=== PATIENT | male | born 1980 | race Caucasian/White ===

== ENCOUNTER → 2021-07-05 | Outpatient (CLI) | payer BC ==
--- NOTE | 2021-07-06 08:45 | XR ---
EXAM TYPE: LUMBAR SPINE X RAY SERIES COMPARISON: NONE HISTORY: Pain TECHNIQUE: 4 views are submitted. FINDINGS: Alignment is anatomic. The pedicles are intact. The transverse processes are intact. Findings suspi cious for bilateral spondylolysis L5. There is minimal anterolisthesis. Very mild hypertrophic change s along the anterior margins of the vertebral segments at multiple levels. Facet arthropathy is seen at levels L3-S1. IMPRESSION: 1. Multilevel facet arthropathy. Findings suspicious for bilateral spondylolysis L5 with minimal ante rolisthesis. Recommend follow-up MRI.
== END | disposition home or self-care (01) ==
LOC: RADXRYALE 16:26
PROVIDERS: ATTEND Nurse Practitioner Family
DX: M47.817 Spondylosis without myelopathy or radiculopathy, lumbosacral region (principal); M43.16 Spondylolisthesis, lumbar region
CPT/HCPCS: 72110

== ENCOUNTER 2024-10-18 18:21 | Observation (INO) | payer BC ==
--- NOTE | 2024-10-18 18:45 | ED ---
Arrhythmia/Palpitations HPI - General Chief Complaint: Arrhythmia/Palpitations Stated Complaint: fast heart rate Time Seen by Provider: 10/18/24 18:37 Source: patient, RN notes reviewed Mode of arrival: ambulatory Limitations: no limitations - History of Present Illness Initial Comments: This is a 44-year-old male with history of hypertension and GERD presenting for sudden onset palpitations occurring at 1430 today. 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 Patient endorses history of palpitations 10 years ago with no concerning findings at that time. States shortness of breath and dizziness have resolved but endorses ongoing palpitations. Patient is currently taking metoprolol for blood pressure control. Denies history of A-fib. Otherwise denies chest pain, cough, hemoptysis, fever, chills, abdominal pain, N/V/D. MD Complaint: "skipped beats", palpitations Onset/Timin -: hour(s) Time: 16:30 Context: occurred during rest Associated Symptoms: shortness of breath - Related Data Home Medications Medication Instructions Recorded Confirmed Omeprazole [PriLOSEC] 20 mg PO DAILY 05/28/14 10/18/24 Metoprolol Succinate [Metoprolol 25 mg PO HS 10/18/24 10/18/24 Succinate ER] Olmesartan/Hydrochlorothiazide 1 tab PO DAILY 10/18/24 10/18/24 [Olmesartan-Hctz 20-12.5 mg Tab] Allergies Allergy/AdvReac Type Severity Reaction Status Date / Time No Known Allergies Allergy Verified 10/18/24 18:43 Review of Systems ROS Statement: Those systems with pertinent positive or pertinent negative responses have been documented in the HPI. ROS Other: All systems not noted in ROS Statement are negative. Past Medical History Past Medical History: GERD/Reflux, Hypertension History of Any Multi-Drug Resistant Organisms: None Reported Past Surgical History: Appendectomy Past Anesthesia/Blood Transfusion Reactions: No Reported Reaction Past Psychological History: No Psychological Hx Reported Smoking Status: Never smoker Past Alcohol Use History: Occasional Past Drug Use History: None Reported General Exam Limitations: no limitations General appearance: alert, in no apparent distress Head exam: Present: atraumatic, normocephalic, normal inspection Eye exam: Present: normal appearance, PERRL, EOMI. Absent: scleral icterus, conjunctival injection, periorbital swelling ENT exam: Present: normal exam, mucous membranes moist Neck exam: Present: normal inspection. Absent: tenderness, meningismus, lymphadenopathy Respiratory exam: Present: normal lung sounds bilaterally. Absent: respiratory distress, wheezes, rales, rhonchi, stridor, accessory muscle use, decreased breath sounds, prolonged expiratory Cardiovascular Exam: Present: regular rate, irregular rhythm, normal heart sounds. Absent: systolic murmur, diastolic murmur, rubs, gallop, clicks GI/Abdominal exam: Present: soft, normal bowel sounds. Absent: distended, tenderness, guarding, rebound, rigid Extremities exam: Present: normal inspection, full ROM, normal capillary refill, other (Bilateral radial pulses +2, irregular). Absent: tenderness, pedal edema, joint swelling, calf tenderness Back exam: Present: normal inspection Neurological exam: Present: alert, oriented X3, CN II-XII intact Psychiatric exam: Present: normal affect, normal mood Skin exam: Present: warm, dry, intact, normal color. Absent: rash Course Vital Signs 10/18/24 10/18/24 10/18/24 18:23 20:31 21:30 Temperature 97.8 F Pulse Rate 102 H 78 85 Respiratory 20 19 16 Rate Blood Pressure 132/88 118/80 114/79 O2 Sat by Pulse 99 100 99 Oximetry Medical Decision Making - Medical Decision Making Was pt. sent in by a medical professional or institution ([facility] Johnson, [employer], urgent care, hospital, or senior care...) When possible be specific @ -No Did you speak to anyone other than the patient for history (EMS, parent, family, police, friend...)? What history was obtained from this source @ -No Did you review nursing and triage notes (agree or disagree)? Why? @ -I reviewed and agree with nursing and triage notes Were old charts reviewed (outside hosp., previous admission, EMS record, old EKG, old radiological studies, urgent care reports/EKG's, senior care records)? Report findings @ -No old charts were reviewed Differential Diagnosis (chest pain, altered mental status, abdominal pain women, abdominal pain men, vaginal bleeding, weakness, fever, dyspnea, syncope, headache, dizziness, GI bleed, back pain, seizure, CVA, palpatations, mental health, musculoskeletal)? @ -Differential Palpitations Ventricular arrhythmias, atrial arrhythmias, myocardial infarction, anemia, thyrotoxicosis, electrolyte imbalance, hypokalemia, pulmonary embolism, pulmonary disease, drugs, alcohol, anxiety, stress.... This is not meant to be an all-inclusive list. EKG interpreted by me (3pts min.). @ -Atrial fibrillation with LVH. No ST deviation or T wave inversion. Ventricular rate 97 bpm, QRS 84 ms, QTc 396 ms. X-rays interpreted by me (1pt min.). @ -CXR shows no acute cardiopulmonary process CT interpreted by me (1pt min.). @ -None done U/S interpreted by me (1pt. min.). @ -None done What testing was considered but not performed or refused? (CT, X-rays, U/S, labs)? Why? @ -None What meds were considered but not given or refused? Why? @ -None Did you discuss the management of the patient with other professionals (rebecca tillman i.e. , PA, [employer], lab, RT, psych nurse, psychiatric social worker supervisor, awnings mechanic, teacher, tourist information officer, trimming caser)? Give summary @ -Spoke to Rachel Bryant from [facility] regarding patient admission. Was smoking cessation discussed for >3mins.? @ -No Was critical care preformed (if so, how long)? @ -No Were there social determinants of health that impacted care today? How? (Homelessness, low income, unemployed, alcoholism, drug addiction, transportation, low edu. Level, literacy, decrease access to med. care, care home, rehab)? @ -No Was there de-escalation of care discussed even if they declined (Discuss DNR or withdrawal of care, Hospice)? DNR status @ -No What co-morbidities impacted this encounter? (DM, HTN, Smoking, COPD, CAD, Cancer, CVA, ARF, Chemo, Hep., AIDS, mental health diagnosis, sleep apnea, morbid obesity)? @ -None Was patient admitted / discharged? Hospital course, mention meds given and route, prescriptions, significant lab abnormalities, going to OR and other pertinent info. @ -Patient initially provided IV normal saline, lab work generally unremarkable except total bilirubin 2.2. Troponin and TSH WNL. CXR shows no acute cardiopulmonary process. Due to new diagnosis of atrial fibrillation, spoke to Rachel Bryant from [facility] for observation admission and cardiology consult. Discussed patient with Dr. Duran. Undiagnosed new problem with uncertain prognosis? @ -Atrial fibrillation Drug Therapy requiring intensive monitoring for toxicity (Heparin, Nitro, Insu ame, Cardizem)? @ -No Were any procedures done? @ -No Diagnosis/symptom? @ -New onset atrial fibrillation Acute, or Chronic, or Acute on Chronic? @ -Acute Uncomplicated (without systemic symptoms) or Complicated (systemic symptoms)? @ -Complicated Side effects of treatment? @ -No Exacerbation, Progression, or Severe Exacerbation? @ -No Poses a threat to life or bodily function? How? (Chest pain, [place], [place], pneumonia, PE, COPD, DKA, ARF, appy, cholecystitis, CVA, Diverticulitis, Homicidal, Suicidal, threat to staff... and all critical care pts) @ -No - Lab Data Result diagrams: 10/18/24 19:25 10/18/24 19:25 Lab Results 10/18/24 10/18/24 10/18/24 Range/Units 19:25 19:25 19:25 WBC 9.78 (4.50-10.00) 10*3/uL RBC 5.02 (4.40-5.60) 10*6/uL Hgb 14.7 (13.0-17.0) g/dL Hct 42.4 (39.6-50.0) % MCV 84.5 (80.0-97.0) fL MCH 29.3 (27.0-32.0) pg MCHC 34.7 (32.0-37.0) g/dL Plt Count 237 (140-440) 10*3/uL MPV 9.7 (9.5-12.2) fL Immature Gran % (Auto) 0.3 % Neutrophils % 64.6 % Lymphocytes % 24.9 % Monocytes % 9.4 % Eosinophils % 0.3 % Basophils % 0.5 % Immature Gran # 0.03 (0.00-0.04) 10*3/uL Neutrophils # 6.31 (1.80-7.70) 10*3/uL Lymphocytes # 2.44 (0.90-5.00) 10*3/uL Monocytes # 0.92 (0.20-1.00) 10*3/uL Eosinophils # 0.03 L (0.04-0.35) 10*3/uL Basophils # 0.05 (0.00-0.10) 10*3/uL PT 11.3 (10.0-12.5) sec INR 1.0 (<1.2) APTT 23.0 (22.0-30.0) sec Sodium 139 (137-145) mmol/L Potassium 3.7 (3.5-5.1) mmol/L Chloride 103 (98-107) mmol/L Carbon Dioxide 25 (22-30) mmol/L Anion Gap 11 mmol/L BUN 20 (9-20) mg/dL Creatinine 1.14 (0.66-1.25) mg/dL Est GFR (CKD-EPI)AfAm 90 (>60 ml/min/1.73 sqM) Est GFR (CKD-EPI)NonAf 78 (>60 ml/min/1.73 sqM) Glucose 96 (74-99) mg/dL Calcium 10.0 (8.4-10.2) mg/dL Magnesium 2.0 (1.6-2.3) mg/dL Total Bilirubin 2.2 H (0.2-1.3) mg/dL AST 28 (17-59) U/L ALT 29 (4-49) U/L Alkaline Phosphatase 43 (38-126) U/L Troponin I (0.000-0.034) ng/mL Total Protein 7.1 (6.3-8.2) g/dL Albumin 4.9 (3.5-5.0) g/dL TSH 1.530 (0.465-4.680) mIU/L //25 Range/Units 19:25 WBC (4.50-10.00) 10*3/uL RBC (4.40-5.60) 10*6/uL Hgb (13.0-17.0) g/dL Hct (39.6-50.0) % MCV (80.0-97.0) fL MCH (27.0-32.0) pg MCHC (32.0-37.0) g/dL Plt Count (140-440) 10*3/uL MPV (9.5-12.2) fL Immature Gran % (Auto) % Neutrophils % % Lymphocytes % % Monocytes % % Eosinophils % % Basophils % % Immature Gran # (0.00-0.04) 10*3/uL Neutrophils # (1.80-7.70) 10*3/uL Lymphocytes # (0.90-5.00) 10*3/uL Monocytes # (0.20-1.00) 10*3/uL Eosinophils # (0.04-0.35) 10*3/uL Basophils # (0.00-0.10) 10*3/uL PT (10.0-12.5) sec INR (<1.2) APTT (22.0-30.0) sec Sodium (137-145) mmol/L Potassium (3.5-5.1) mmol/L Chloride (98-107) mmol/L Carbon Dioxide (22-30) mmol/L Anion Gap mmol/L BUN (9-20) mg/dL Creatinine (0.66-1.25) mg/dL Est GFR (CKD-EPI)AfAm (>60 ml/min/1.73 sqM) Est GFR (CKD-EPI)NonAf (>60 ml/min/1.73 sqM) Glucose (74-99) mg/dL Calcium (8.4-10.2) mg/dL Magnesium (1.6-2.3) mg/dL Total Bilirubin (0.2-1.3) mg/dL AST (17-59) U/L ALT (4-49) U/L Alkaline Phosphatase (38-126) U/L Troponin I <0.012 (0.000-0.034) ng/mL Total Protein (6.3-8.2) g/dL Albumin (3.5-5.0) g/dL TSH (0.465-4.680) mIU/L Disposition Clinical Impression: Atrial fibrillation Disposition: ADMITTED IP TO THIS HOSP Condition: Fair Referrals: Mahad Flemnig MD [Primary Care Provider] - 1-2 days Time of Disposition: 20:00 Decision Date: 10/18/24 Decision Time: 20:00
[2024-10-18] MEDS: SODIUM CHLORIDE 0.9% 1,000 ML IV STA (19:29)
[2024-10-18 19:38] LABS: Basophils # (A) 0.05 10*3/uL (0.00-0.10); Basophils % (A) 0.5 %; Eosinophils # (A) 0.03 10*3/uL (0.04-0.35); Eosinophils % (A) 0.3 %; HCT 42.4 % (39.6-50.0); HGB 14.7 g/dL (13.0-17.0); Lymphocytes # (A) 2.44 10*3/uL (0.90-5.00); Lymphocytes % (A) 24.9 %; MCH 29.3 pg (27.0-32.0); MCHC 34.7 g/dL (32.0-37.0); MCV 84.5 fL (80.0-97.0); Monocytes # (A) 0.92 10*3/uL (0.20-1.00); Monocytes % (A) 9.4 %; Neutrophils # (A) 6.31 10*3/uL (1.80-7.70); Neutrophils % (A) 64.6 %; Platelet Count 237 10*3/uL (140-440); RBC 5.02 10*6/uL (4.40-5.60); RDW 12.2 % (11.5-14.5); WBC 9.78 10*3/uL (4.50-10.00)
--- NOTE | 2024-10-18 19:42 | XR ---
EXAMINATION TYPE: XR chest 2V DATE OF EXAM: 10/18/2024 7:40 PM COMPARISON: None CLINICAL INDICATION: Male, 44 years old with history of dysrhythmia; [facility] TECHNIQUE: XR chest 2V Frontal and lateral views of the chest. FINDINGS: Lungs/Pleura: There is no evidence of pleural effusion, focal consolidation, or pneumothorax. Pulmonary vascularity: Unremarkable. Heart/mediastinum: Cardiomediastinal silhouette is unremarkable. Musculoskeletal: No acute osseous pathology. Other findings: None IMPRESSION: No acute cardiopulmonary disease/process. [facility], , 10/18/2024 7:40 PM
[2024-10-18 20:01] LABS: ALT 29 U/L (4-49); AST 28 U/L (17-59); African American GFR (CKD) 90 (>60 ml/min/1.73 sqM); Albumin 4.9 g/dL (3.5-5.0); Alkaline Phosphatase 43 U/L (38-126); Anion Gap 11 mmol/L; Blood Urea Nitrogen 20 mg/dL (9-20); Calcium 10.0 mg/dL (8.4-10.2); Carbon Dioxide 25 mmol/L (22-30); Chloride 103 mmol/L (98-107); Glucose 96 mg/dL (74-99); Magnesium 2.0 mg/dL (1.6-2.3); Non-African American GFR(CKD) 78 (>60 ml/min/1.73 sqM); Potassium 3.7 mmol/L (3.5-5.1); Sodium 139 mmol/L (137-145); Total Protein 7.1 g/dL (6.3-8.2)
[2024-10-18 20:02] LABS: INR 1.0 (<1.2); Partial Thromboplastin Time 23.0 sec (22.0-30.0); Prothrombin Time 11.3 sec (10.0-12.5)
[2024-10-18] MEDS ORDERED: ONDANSETRON 4 MG/2 ML VIAL IVP PRN (20:50)
[2024-10-18] MEDS ORDERED: NALOXONE 0.4 MG/ML 1 ML VIAL IV PRN (20:50)
[2024-10-18] MEDS ORDERED: ACETAMINOPHEN TAB 325 MG TAB PO PRN (20:50)
[2024-10-18] MEDS ORDERED: HYDROmorphone 0.5 MG/0.5 ML SYRINGE IVP PRN (20:50)
[2024-10-18] MEDS ORDERED: HYDROmorphone 1 MG/ML 1 ML SYRINGE IVP PRN (20:50)
[2024-10-18] MEDS: METOPROLOL SUCCINATE (ER) 25 MG TAB.ER.24H PO SCH (21:32)
[2024-10-19 07:56] VITALS: RESP 16; TEMP 98
[2024-10-19] MEDS: PANTOPRAZOLE 40 MG TABLET PO SCH (09:18)
[2024-10-19] MEDS: LOSARTAN 50 MG TAB PO SCH (09:18)
--- NOTE | 2024-10-19 14:06 | P.HPIM ---
History of Present Illness H&P Date: 10/19/24 Chief Complaint: Palpitations Patient is a 44-year-old male with a past medical history of hypertension, GERD and history of tachycardia was brought to ER with complaints of palpitations. 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 He also felt shortness of breath and warm sensation. Patient does have history of palpitations 10 years ago and is currently on metoprolol 25 mg at bedtime. Patient stated he has been taking medications regularly. No prior history of atrial fibrillation. No complaints of chest pain. No leg swelling. Denied any exertional dyspnea recently. No nausea vomiting abdominal pain or diarrhea. No cough or sputum production. Chest x-ray showed no acute cardiopulmonary process EKG showed atrial fibrillation with heart rate 97 Laboratory showed WBC 9.7 hemoglobin 14.7 and platelets 237 Sodium 139 potassium 3.7 chloride 103 bicarb is 25 BUN 20 and creatinine 1.14 and blood sugar 96 Total bili 2.2 AST ALT alk phos within normal limits troponin x 1 negative and TSH 1.53 within normal limits. Review of Systems Constitutional: Patient denies any fever or chills . No generalized weakness or weight loss. Abdomen: Patient denied nausea vomiting and diarrhea and abdominal pain. Cardiovascular: Patient denies any chest pain. Patient did have palpitations, dizziness and shortness of breath. Respiratory: patient denied any cough or sputum production. No shortness of breath Neurologic: Patient denied any numbness or tingling. no headache. Musculoskeletal: Patient denies any complaints of joint swelling or deformity. Skin: Negative Psychiatric: Negative Endocrine: No heat or cold intolerance. No recent weight gain. Genitourinary: No dysuria or hematuria. All other 14 point ROS negative except the above Past Medical History Past Medical History: GERD/Reflux, Hypertension History of Any Multi-Drug Resistant Organisms: None Reported Past Surgical History: Appendectomy, Cholecystectomy Past Anesthesia/Blood Transfusion Reactions: No Reported Reaction Past Psychological History: No Psychological Hx Reported Smoking Status: Never smoker Past Alcohol Use History: Occasional Past Drug Use History: None Reported - Past Family History Father Family Medical History: AFIB Additional Family Medical History / Comment(s): uncle has history of AFIB Medications and Allergies Home Medications Medication Instructions Recorded Confirmed Type Omeprazole [PriLOSEC] 20 mg PO DAILY 03/05/15 07/26/25 History Metoprolol Succinate [Metoprolol 25 mg PO HS 10/18/24 10/18/24 History Succinate ER] Olmesartan/Hydrochlorothiazide 1 tab PO DAILY 10/18/24 10/18/24 History [Olmesartan-Hctz 20-12.5 mg Tab] Allergies Allergy/AdvReac Type Severity Reaction Status Date / Time No Known Allergies Allergy Verified 10/18/24 18:43 Physical Exam Vitals: Vital Signs Temp Pulse Pulse Resp BP BP Pulse Ox 10/19/24 07:37 98.0 F 72 16 117/80 99 10/19/24 06:00 97.5 F L 92 17 104/72 97 10/19/24 03:00 80 17 107/89 97 10/18/24 23:30 89 17 122/85 99 10/18/24 21:30 85 16 114/79 99 10/18/24 20:31 78 19 118/80 100 10/18/24 18:23 97.8 F 102 H 20 132/88 99 Intake and Output 10/18/24 10/19/24 10/19/24 22:59 06:59 14:59 Other: Weight 86.183 kg 86.183 kg PHYSICAL EXAMINATION: Patient is lying in the bed comfortably, no acute distress, awake alert and oriented.. HEENT: Normocephalic. Neck is supple. Pupils reactive. Nostrils clear. Oral cavity is moist. Neck reveals no JVD, carotid bruits, or thyromegaly. CHEST EXAMINATION: Trachea is central. Symmetrical expansion. Lung zimmer clear to auscultation and percussion. CARDIAC: Normal S1, S2 with no gallops. No murmurs. Irregularly irregular rhythm. ABDOMEN: Soft. Bowel sounds normal. No organomegaly. No abdominal bruits. Extremities: reveal no edema. No clubbing or cyanosis Neurologically awake, alert, oriented x3 with well-coordinated movements. No focal deficits noted Skin: No rash or skin lesions. Psychiatric: Coperative. Nonsuicidal Musculoskeletal: No joint swelling or deformity. Normal range of motion. Results CBC & Chem 7: 10/18/24 19:25 10/18/24 19:25 Labs: Abnormal Lab Results - Last 24 Hours (Table) 10/18/24 10/18/24 Range/Units 19:25 19:25 Eosinophils # 0.03 L (0.04-0.35) 10*3/uL Total Bilirubin 2.2 H (0.2-1.3) mg/dL Thrombosis Risk Factor Assmnt - DVT/VTE Prophylaxis DVT/VTE Prophylaxis: Mechanical Prophylaxis ordered - Choose All That Apply Each Factor Represents 1 point: Age 41-60 years Thrombosis Risk Factor Assessment Total Risk Factor Score: 1 Thrombosis Risk Factor Assessment Level: Low Risk Assessment and Plan Assessment: New onset atrial fibrillation with rapid ventricular response History of palpitations Hypertension GERD DVT prophylaxis with early ambulation Plan: Patient will be continued on telemetry. Started back on metoprolol. Patient remains in atrial fibrillation. CHADS2 score 1. Patient will be started on aspirin and cardiology evaluation. Will hold home blood pressure medication olmesartan/hydrochlorothiazide. Continue to follow closely. Discussed with the patient in detail at bedside.
[2024-10-19] MEDS: ASPIRIN 81 MG PO SCH (14:18)
[2024-10-19] MEDS: DILTIAZEM CD 120 MG CAP.ER.24H PO SCH (14:19)
[2024-10-19 14:45] LABS: NT-Pro-B-Type Natriuretic Pept 1390 pg/mL
[2024-10-19 15:39] VITALS: BP 109/62; PULSE 57
--- NOTE | 2024-10-19 23:55 | P.CRDCN ---
History of Present Illness Consult date: 10/19/24 History of present illness: HISTORY OF PRESENTING ILLNESS: 44-year-old with past medical history of hypertension GERD and history of tachycardia. He presented to the hospital because of symptoms of palpitations. 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 Along with this he was having some dizziness and sweating like symptoms around 2:30 PM on 09/18/2024. Also felt short of breath and warm sensation. He denies a prior history of palpitations for which she has been taking metoprolol 25 mg at bedtime. On admission was noticed to be in atrial fibrillation. On telemetry his heart rate has been fluctuating between 80 to 120 bpm. BP 117/80, heart rate 72 bpm Hb 14.7, BUN 20, creatinine 1.1, A1c 5.4, total bili 2.2, troponin normal, NT- proBNP 1390, TSH 1.5 Chest x-ray did not show any signs of consolidation congestion ................................................................................ .............................................................. Prior cardiac testing: [ ] ......... ................................................................................ ..................................................... REVIEW OF SYSTEMS: 14 point review of system is negative except what is mentioned above in HPI. ...................................................................... ........................................................................ PHYSICAL EXAMINATION: Neck: Brisk carotid upstroke, no jugular venous distention. Lungs: Clear to auscultation. Heart: Irregular rate and rhythm, S1-S2, , no murmur or rub. Abdomen: Soft nontender, positive bowel sounds. Extremities: No edema, intact distal pulses. Neuro: Alert, oritented, no focal deficits. Detailed neuro exam was not performed. ............................................................................. ................................................................. ASSESSMENT: # Persistent atrial fibrillation. First diagnosed 09/2024. 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 Instead start Cardizem 120 mg daily Patient is cleared to be discharged from cardiac standpoint Recommend outpatient follow-up within the next 1 week. Will obtain echocardiogram, Holter monitor and a stress test on outpatient basis and make further recommendations. Mark Gonzalez, MD, FACC, RPVI Past Medical History Past Medical History: GERD/Reflux, Hypertension History of Any Multi-Drug Resistant Organisms: None Reported Past Surgical History: Appendectomy, Cholecystectomy Past Anesthesia/Blood Transfusion Reactions: No Reported Reaction Past Psychological History: No Psychological Hx Reported Smoking Status: Never smoker Past Alcohol Use History: Occasional Past Drug Use History: None Reported - Past Family History Father Family Medical History: AFIB Additional Family Medical History / Comment(s): uncle has history of AFIB Medications and Allergies Home Medications Medication Instructions Recorded Confirmed Type Omeprazole [PriLOSEC] 20 mg PO DAILY 05/28/14 10/18/24 History Aspirin 81 mg PO DAILY #30 tab 10/19/24 Rx Diltiazem Cd [Cardizem CD] 120 mg PO DAILY 30 Days #30 cap 10/19/24 Rx Allergies Allergy/AdvReac Type Severity Reaction Status Date / Time No Known Allergies Allergy Verified 10/18/24 18:43 Physical Exam Vitals: Vital Signs Temp Pulse Pulse Resp BP BP BP 10/19/24 15:39 57 L 109/62 10/19/24 15:00 98.0 F 93 16 107/74 10/19/24 07:37 98.0 F 72 16 117/80 10/19/24 06:00 97.5 F L 92 17 104/72 10/19/24 03:00 80 17 107/89 Pulse Ox 10/19/24 15:39 99 10/19/24 15:00 95 10/19/24 07:37 99 10/19/24 06:00 97 10/19/24 03:00 97 Intake and Output 10/19/24 10/19/24 10/20/24 14:59 22:59 06:59 Intake Total 560 Balance 560 Intake: Oral 560 Other: # Voids 1 Weight 86.183 kg Results 10/18/24 19:25 10/18/24 19:25 Intake and Output 10/19/24 10/19/24 10/20/24 14:59 22:59 06:59 Intake Total 560 Balance 560 Intake: Oral 560 Other: # Voids 1 Weight 86.183 kg Patient Weight 10/20/24 06:59 Weight 86.183 kg 10/18/24 19:25 10/18/24 19:25
[2024-10-20 03:12] LABS: Cholesterol 145.00 mg/dL (0.00-200.00); HDL Cholesterol 51.70 mg/dL (40.00-60.00); LDL Cholesterol,Calculated 83.1 mg/dL (0.0-131.0); Triglycerides 50.90 mg/dL (0.00-149.00); VLDL Calculation 10.18 mg/dL (5.00-40.00)
== END 2024-10-19 16:53 | disposition home or self-care (01) ==
LOC: EC 18:21 → 6NMEDSUR 22:19
PROVIDERS: ADMIT Hospitalist; ATTEND Hospitalist
DX: I48.19 Other persistent atrial fibrillation (principal); E78.5 Hyperlipidemia, unspecified; I10 Essential (primary) hypertension; K21.9 Gastro-esophageal reflux disease without esophagitis; Z79.82 Long term (current) use of aspirin; Z79.899 Other long term (current) drug therapy
CPT/HCPCS: 96360; 99285; 36415; 93005; 83880; 80061; 80053; 83735; 84443; 84484; 85025; 85610; 85730; 83036; 71046; G0378 ×2